=== PATIENT | female | born 1995 | race Caucasian/White ===

== ENCOUNTER 2019-10-11 14:15 | Emergency (ER) | payer OTHER ==
[~2019-10-11] VITALS: Ht 170.2 cm; Wt 93.0 kg
[~2019-10-11 14:15] MED LIST: AZITHROMYCIN 2250 MG PO; BACTRIM DS TAB1 EACH PO; CIPRO250 M1 PO; IBUPROFEN 800800 MG PO; MUCUS-ER MAX1200 MG PO; NOHOMEMEDICATIONS; PHENERGAN-CODE120 ML PO; RHINOCORT ALL8.43 ML NS; TRINATE TABLET1 TAB; UNICOMPLEX M TA1 TA1 PO
[2019-10-11 14:35] LABS: URINE BILIRUBIN NEGATIVE (Negative); URINE BLOOD NEGATIVE (Negative); URINE CLARITY SL CLOUDY; URINE COLOR YELLOW; URINE GLUCOSE-RANDOM NEGATIVE (Negative); URINE KETONES NEGATIVE (Negative); URINE LEUKOCYTES-REFLEX TRACE (Negative); URINE NITRITE-REFLEX POSITIVE (Negative); URINE PROTEIN NEGATIVE (Negative); URINE SPECIFIC GRAVITY 1.015 (1.005-1.030); URINE UROBILINOGEN 0.2 E.U./dl (0.2-1.0)
[2019-10-11 14:41] LABS: SQUAMOUS >10 Many /LPF (0-3)
[2019-10-11 14:42] LABS: URINE WBC-REFLEX 6-15 Few /HPF (0-5)
[2019-10-11 14:43] LABS: BACTERIA-REFLEX >30 Many /HPF (None Seen); CASTS None Seen /LPF (None Seen); CRYSTALS None Seen /LPF (None Seen); MUCUS 4-6 Moderate strn/LPF (None Seen); URINE RBC 0-2 Rare /HPF (0-2)
[2019-10-11] MEDS ORDERED: PHENERGAN 25 MG25 M1 PO (14:58)
[2019-10-11] MEDS ORDERED: CIPRO500 MG PO (14:58)
[2019-10-11 15:24] VITALS: BP 125/85
== END 2019-10-11 15:25 | disposition home or self-care (01) ==
LOC: M.ERS 14:15
PROVIDERS: Nurse Practitioner Family
DX: N39.0 Urinary tract infection, site not specified (principal)

== ENCOUNTER 2019-10-24 13:05 | Emergency (ER) | payer OTHER ==
[~2019-10-24] VITALS: Ht 170.2 cm; Wt 95.3 kg
[~2019-10-24 13:05] MED LIST changes: +CIPRO500 MG PO; +PHENERGAN 25 MG25 M1 PO
[2019-10-24] MEDS ORDERED: MEDROLDOSEPACK PO (14:35)
[2019-10-24] MEDS ORDERED: TYLENOL WITH CO1 TA1 PO (14:35)
[2019-10-24] MEDS ORDERED: MUPIROCIN15 GM TOP (14:35)
[2019-10-24] MEDS ORDERED: ROBAXIN 750 MG750 MG PO (14:36)
[2019-10-24 14:43] VITALS: BP 110/73
== END 2019-10-24 14:44 | disposition home or self-care (01) ==
LOC: M.ERS 13:05
DX: M54.5 Low back pain (principal); Z87.440 Personal history of urinary (tract) infections; Z88.1 Allergy status to other antibiotic agents

== ENCOUNTER 2020-05-16 09:31 | Emergency (ER) | payer OTHER ==
[~2020-05-16] VITALS: Ht 170.2 cm; Wt 100.2 kg
[~2020-05-16 09:31] MED LIST changes: +MEDROLDOSEPACK PO; +MUPIROCIN15 GM TOP; +ROBAXIN 750 MG750 MG PO; +TYLENOL WITH CO1 TA1 PO
[2020-05-16] MEDS ORDERED: CLEOCIN HCL300 MG PO (10:08)
[2020-05-16] MEDS ORDERED: TRAMADOL 50 MG50 MG PO (10:08)
[2020-05-16 10:15] VITALS: BP 156/112
== END 2020-05-16 10:15 | disposition home or self-care (01) ==
LOC: M.ERS 09:31
DX: K02.9 Dental caries, unspecified (principal); I10 Essential (primary) hypertension; Z87.440 Personal history of urinary (tract) infections; Z88.1 Allergy status to other antibiotic agents

== ENCOUNTER 2021-01-29 07:57 | Emergency (ER) | payer OTHER ==
[~2021-01-29] VITALS: Ht 170.2 cm; Wt 90.7 kg
[~2021-01-29 07:57] MED LIST changes: +CLEOCIN HCL300 MG PO; +TRAMADOL 50 MG50 MG PO
[2021-01-29 08:31] LABS: HEMATOCRIT 45.7 % (37.0-47.0); HEMOGLOBIN 15.5 gm/dL (12.0-15.0); MCH 28.8 pg (26.0-34.0); MCHC 33.9 g/dL (28.0-37.0); MCV 84.9 fL (80.0-100.0); MPV 9.1 fl. (7.2-11.1); NUCLEATED RBCS 0 /100WBC; PLATELET COUNT* 164 thou/uL (150-400); RBC 5.39 mil/uL (4.20-5.00); RDW-CV 14.1 % (10.5-14.5); WBC 9.8 thou/uL (4.0-11.0)
[2021-01-29 08:40] LABS: CREATININE 0.8 mg/dL (0.6-1.3); POTASSIUM 3.4 mmol/L (3.5-5.1)
[2021-01-29 08:44] LABS: TOTAL BILIRUBIN 1.2 mg/dL (<0.1-1.0); TOTAL PROTEIN 7.2 g/dL (6.4-8.2)
[2021-01-29 09:18] VITALS: BP 146/101
[2021-01-29 09:50] LABS: ABSOLUTE LYMPHOCYTES 3.2 thou/uL (0.8-5.3); ABSOLUTE NEUTROPHILS 5.6 thou/uL (1.6-8.1); ATYPICAL LYMPHS 17 %
[2021-01-29 09:53] LABS: PLATELET ESTIMATE ADEQUATE
[2021-01-29 09:55] LABS: ANISOCYTOSIS 1+; POIKILOCYTOSIS 1+
--- NOTE | 2021-01-29 17:47 | EKG ---
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[employer] : 1995 Requested By: Jesus Cortés Order Number: [id number] MD: Magen Crews Measurements Intervals [place] Rate: 103 P: 60 MN: 98 QRS: 32 QRSD: 93 T: 22 QT: 340 QTc: 445 Interpretive Statements Sinus tachycardia No previous ECG available for comparison Electronically Signed On 01-29-2021 17:47:10 [employer]AFF [employer]OCIATE by Magen Crews [email or web address] <ELECTRONICALLY SIGNED> By: Magen Crews MD, [facility] 01/29/21 1747 3 3 Magen Crews MD, [facility] /EPI
== END 2021-01-29 09:19 | disposition home or self-care (01) ==
LOC: M.ERS 07:57
PROVIDERS: Family Medicine
DX: R07.89 Other chest pain (principal); I10 Essential (primary) hypertension; Z87.440 Personal history of urinary (tract) infections; Z88.1 Allergy status to other antibiotic agents